=== PATIENT | female | born 1955 | race Caucasian/White ===

== ENCOUNTER 2017-05-03 11:38 | Emergency (ER) | payer SELFPAY ==
[~2017-05-03] VITALS: Ht 162.6 cm; Wt 78.0 kg
[2017-05-03 13:15] LABS: HEMATOCRIT 40.3 % (37.0-47.0); HEMOGLOBIN 14.1 g/dl (12.0-16.0); IMMATURE GRANULOCYTES 0.4 % (0.0-1.0); MEAN CELL VOLUME 94.8 fL CALC (80.0-100.0); MEAN CORPUSCULAR HGB 33.2 pG CALC (26.0-32.0); NEUT# 5.52 thou/uL (2.00-7.15); RED BLOOD COUNT 4.25 mill/uL (4.20-5.60)
[2017-05-03 13:22] LABS: INTERNATIONAL NORMALIZED RATIO 1.1 RATIO (0.7-1.3); PROTHROMBIN TIME 12.5 SECONDS (9.0-12.5)
[2017-05-03 13:49] LABS: ALBUMIN 4.4 g/dL (3.2-5.0); ALKALINE PHOSPHATASE 129 u/l (38-126); ANION GAP 18 (6-22 (CALC)); BILIRUBIN, TOTAL 0.5 mg/dL (0.0-1.4); BUN 5 mg/dL (7-17); BUN/CREATININE RATIO 10 (12-20 (CALC)); CALCIUM 9.3 mg/dL (8.4-10.2); CARBON DIOXIDE 23 mmol/l (22-30); CHLORIDE 95 mmol/l (95-108); CREATININE 0.5 mg/dL (0.5-1.0); GFR > 60 ML/MIN (>=60 (CALC)); GFR FOR AFR.AMER. > 60 ML/MIN (>=60 (CALC)); GLUCOSE 124 mg/dL (65-105); POTASSIUM 4.3 mmol/l (3.5-5.1); SGOT/AST 87 u/l (14-36); SGPT/ALT 53 u/l (9-52); SODIUM 132 mmol/l (137-146); TOTAL PROTEIN 7.4 g/dL (6.3-8.2)
[2017-05-03 14:02] LABS: MYOGLOBIN 21 ng/mL (0 - 62)
[2017-05-03] MEDS ORDERED: CLONIDINE0.1 MG PO (15:00)
[2017-05-03] MEDS ORDERED: CORTISPORIN OTI10 ML AD (15:01)
[2017-05-03] MEDS ORDERED: CIPROFLOXACN500 MG PO (15:01)
[2017-05-03 15:10] VITALS: BP 184/90
== END 2017-05-03 15:14 | disposition home or self-care (01) | DRG 305 ==
LOC: ED 11:38
PROVIDERS: Emergency Medicine
DX: I10 Essential (primary) hypertension (principal); H66.91 Otitis media, unspecified, right ear; S00.411A Abrasion of right ear, initial encounter; X58.XXXA Exposure to other specified factors, initial encounter

== ENCOUNTER 2019-02-27 10:00 | Emergency (ER) | payer SELFPAY ==
[~2019-02-27] VITALS: Ht 162.6 cm; Wt 68.2 kg
[~2019-02-27 10:00] MED LIST: CIPROFLOXACN500 MG PO; CLONIDINE0.1 MG PO; CORTISPORIN OTI10 ML AD
[2019-02-27 10:40] LABS: HEMOGLOBIN 11.9 g/dl (12.0-16.0); IMMATURE GRANULOCYTES 0.5 % (0.0-5.0); MEAN CELL VOLUME 97.1 fL CALC (80.0-100.0); MEAN CORPUSCULAR HGB CONC 36.1 g/L CALC (32.0-36.0); NEUT# 9.2 thou/uL (2.00-7.15); RED BLOOD COUNT 3.4 mill/uL (4.20-5.60); RED CELL DISTRI WIDTH 11.9 % (11.5-15.5)
[2019-02-27 10:57] LABS: BUN 2 mg/dL (8-23); BUN/CREATININE RATIO 7 (12-20 (CALC)); CHLORIDE 92 mmol/l (95-108); CREATININE 0.3 mg/dL (0.5-1.0); GFR > 60 ML/MIN (>=60 (CALC)); GFR FOR AFR.AMER. > 60 ML/MIN (>=60 (CALC)); POTASSIUM 3.8 mmol/l (3.5-5.1); SODIUM 127 mmol/l (137-146)
[2019-02-27 10:58] LABS: ANION GAP 22 (6-22 (CALC)); CARBON DIOXIDE 17 mmol/l (22-30)
[2019-02-27] MEDS ORDERED: NORVASC5 M1 PO (11:38)
[2019-02-27] MEDS ORDERED: FOLIC ACID1 MG PO (11:38)
[2019-02-27] MEDS ORDERED: METOPROL TAR25 MG PO (11:39)
[2019-02-27 18:14] VITALS: BP 117/58
== END 2019-02-27 18:14 | disposition short-term general hospital (02) | DRG 552 ==
LOC: ED 10:00
PROVIDERS: Family Medicine
DX: S32.040A Wedge compression fracture of fourth lumbar vertebra, initial encounter for closed fracture (principal); M79.605 Pain in left leg; M25.551 Pain in right hip; E87.1 Hypo-osmolality and hyponatremia; I10 Essential (primary) hypertension; W01.0XXA Fall on same level from slipping, tripping and stumbling without subsequent striking against object, initial encounter; Y92.000 Kitchen of unspecified non-institutional (private) residence as the place of occurrence of the external cause

== ENCOUNTER 2021-03-19 08:58 | Emergency (ER) | payer SELFPAY ==
[~2021-03-19] VITALS: Ht 162.6 cm; Wt 75.0 kg
[~2021-03-19 08:58] MED LIST changes: +FOLIC ACID1 MG PO; +METOPROL TAR25 MG PO; +NORVASC5 M1 PO
[2021-03-19 09:49] LABS: HEMATOCRIT 31.7 % (37.0-47.0); IMMATURE GRANULOCYTES 0.7 % (0.0-5.0); MEAN CORPUSCULAR HGB 32.8 pG CALC (26.0-32.0); MEAN CORPUSCULAR HGB CONC 37.9 g/dL CAL (32.0-36.0); NEUT# 15.14 thou/uL (2.00-7.15); RED BLOOD COUNT 3.66 mill/uL (4.20-5.60); RED CELL DISTRI WIDTH 11.5 % (11.5-15.5)
[2021-03-19 09:52] LABS: MEAN CELL VOLUME 86.6 fL CALC (80.0-100.0)
[2021-03-19 10:05] LABS: URINE BILIRUBIN - DIPSTICK NEGATIVE (NEGATIVE); URINE BLOOD DIPSTICK TRACE-INTACT (NEGATIVE); URINE COLOR YELLOW; URINE GLUCOSE - DIPSTICK NEGATIVE (NEGATIVE); URINE KETONE 15 mg/dL (NEGATIVE); URINE LEUK ESTERASE NEGATIVE (NEGATIVE); URINE PH 6.5 (4.5-8.0); URINE PROTEIN - DIPSTICK NEGATIVE (NEG-TRACE); URINE UROBILINOGEN - DIPSTICK 0.2 E.U./dL (0.2)
[2021-03-19 10:07] LABS: URINE NITRITE - DIPSTICK NEGATIVE (Negative)
[2021-03-19 10:56] LABS: ALBUMIN 4.1 g/dL (3.2-5.0); ALKALINE PHOSPHATASE 133 u/l (38-126); BUN 5 mg/dL (8-23); BUN/CREATININE RATIO 10 (12-20 (CALC)); CREATININE 0.5 mg/dL (0.5-1.0); GFR > 60 ML/MIN (>=60 (CALC)); GFR FOR AFR.AMER. > 60 ML/MIN (>=60 (CALC)); SGOT/AST 38 u/l (9-36); TOTAL PROTEIN 7.5 g/dL (6.3-8.2)
[2021-03-19 10:59] LABS: ANION GAP 13 (6-22 (CALC)); BILIRUBIN, TOTAL 1.3 mg/dL (0.0-1.4); CARBON DIOXIDE 37 mmol/l (22-30); CHLORIDE 59 mmol/l (95-108); POTASSIUM 1.6 mmol/l (3.5-5.1); SODIUM 107 mmol/l (137-146)
[2021-03-19 11:08] LABS: MYOGLOBIN 72 ng/mL (0 - 62)
[2021-03-19 11:13] LABS: PROTHROMBIN TIME 10.4 SECONDS (9.0-12.5)
[2021-03-19 11:26] LABS: MAGNESIUM 1.3 mg/dL (1.6-2.3)
[2021-03-19 13:43] VITALS: BP 119/53
== END 2021-03-19 13:43 | disposition short-term general hospital (02) | DRG 948 ==
LOC: ED 08:58
PROVIDERS: Emergency Medicine
PROC: 0T9B70Z Drainage of Bladder with Drainage Device, Via Natural or Artificial Opening (ICD-10-PCS; principal; 2021-03-19)
PROC: 02HV33Z Insertion of Infusion Device into Superior Vena Cava, Percutaneous Approach (ICD-10-PCS; 2021-03-19)
DX: R79.89 Other specified abnormal findings of blood chemistry (principal); E87.1 Hypo-osmolality and hyponatremia; E87.6 Hypokalemia; I10 Essential (primary) hypertension; F10.10 Alcohol abuse, uncomplicated; S00.83XA Contusion of other part of head, initial encounter; S80.02XA Contusion of left knee, initial encounter; S40.022A Contusion of left upper arm, initial encounter; W19.XXXA Unspecified fall, initial encounter; Y92.009 Unspecified place in unspecified non-institutional (private) residence as the place of occurrence of the external cause; Z20.822 Contact with and (suspected) exposure to COVID-19

== ENCOUNTER 2022-08-16 08:00 | Day surgery (SDC) | payer MEDICARE ==
[~2022-08-16] VITALS: Ht 157.5 cm; Wt 68.0 kg
[~2022-08-16 08:00] MED LIST changes: +COZAAR50 MG PO; +OMEPRAZOLE DR40 MG PO; +SOD CHLORIDE1 G2 OD
[2022-08-16 10:47] VITALS: BP 131/71
== END 2022-08-16 10:35 | disposition home or self-care (01) ==
LOC: ENDO 08:00 → ORM 09:30 → ENDO 10:35 → ORM 14:00
PROVIDERS: ATTEND Internal Medicine Gastroenterology
PROC: 0DBK8ZX Excision of Ascending Colon, Via Natural or Artificial Opening Endoscopic, Diagnostic (ICD-10-PCS; principal; 2022-08-16)
PROC: 3E0H8KZ Introduction of Other Diagnostic Substance into Lower GI, Via Natural or Artificial Opening Endoscopic (ICD-10-PCS; 2022-08-16)
PROC: 0DB28ZX Excision of Middle Esophagus, Via Natural or Artificial Opening Endoscopic, Diagnostic (ICD-10-PCS; 2022-08-16)
PROC: 0DB78ZX Excision of Stomach, Pylorus, Via Natural or Artificial Opening Endoscopic, Diagnostic (ICD-10-PCS; 2022-08-16)
DX: Z12.11 Encounter for screening for malignant neoplasm of colon (principal); D12.2 Benign neoplasm of ascending colon; K64.8 Other hemorrhoids; K20.80 Other esophagitis without bleeding; K29.50 Unspecified chronic gastritis without bleeding; K44.9 Diaphragmatic hernia without obstruction or gangrene; Z80.0 Family history of malignant neoplasm of digestive organs; Z79.899 Other long term (current) drug therapy

== ENCOUNTER 2024-04-15 17:36 | Emergency (ER) | payer MEDICARE ==
[~2024-04-15] VITALS: Ht 160 cm; Wt 68.0 kg
[2024-04-15] MEDS ORDERED: SODIUM CHLORIDE 0.9% 1,000 ML IV ONE (17:45)
[2024-04-15 18:01] VITALS: BP 138/90
[2024-04-15 18:30] LABS: BASO% 0.6 % (0-3); EOS% 2.4 % (0-8); HEMOGLOBIN 10.8 g/dl (12.0-16.0); IMMATURE GRANULOCYTES 0.1 % (0.0-5.0); LYMPH% 25.4 % (15-41); MEAN CORPUSCULAR HGB 34.3 pG CALC (26.0-32.0); MEAN CORPUSCULAR HGB CONC 31.8 g/dL CAL (32.0-36.0); NEUT# 4.27 thou/uL (2.00-7.15); NEUT% 63.5 % (42-76); RED BLOOD COUNT 3.15 mill/uL (4.20-5.60); RED CELL DISTRI WIDTH 13.8 % (11.5-15.5)
[2024-04-15 18:31] VITALS: BP 144/91
[2024-04-15 18:32] LABS: MEAN CELL VOLUME 107.9 fL CALC (80.0-100.0)
[2024-04-15 18:35] LABS: CREATININE 0.7 mg/dL (0.5-1.0); POTASSIUM 3.8 mmol/l (3.5-5.1)
[2024-04-15 19:00] VITALS: BP 144/67
[2024-04-15 19:30] VITALS: BP 150/81
[2024-04-15] MEDS ORDERED: oxyCODONE 5MG/ ACETAMINOPHEN 325MG TAB PO ONE (19:40)
[2024-04-15 22:59] VITALS: BP 162/114
[2024-04-15 23:00] VITALS: BP 164/108
== END 2024-04-15 21:33 | disposition short-term general hospital (02) ==
LOC: ED 17:36
PROVIDERS: Family Medicine
PROC: 2W39XYZ Immobilization of Left Upper Extremity using Other Device (ICD-10-PCS; principal; 2024-04-15)
DX: S42.292A Other displaced fracture of upper end of left humerus, initial encounter for closed fracture (principal); S52.002A Unspecified fracture of upper end of left ulna, initial encounter for closed fracture; I10 Essential (primary) hypertension; W01.0XXA Fall on same level from slipping, tripping and stumbling without subsequent striking against object, initial encounter; Y92.028 Other place in mobile home as the place of occurrence of the external cause